=== PATIENT | male | born 1960 | race Two or more races ===

== ENCOUNTER 2017-06-19 14:44 | Emergency (ER) | payer SELFPAY ==
--- NOTE | 2017-06-19 14:58 | EDM.PDOC ---
ED HPI GENERAL MEDICAL PROBLEM - General Chief Complaint: Cardiovascular Problem Stated Complaint: [id number] ELEVATED BLOOD PRESSURE Time Seen by Provider: 06/19/17 14:57 Source of Information: Reports: Patient, RN, RN Notes Reviewed History Limitations: Reports: No Limitations - History of Present Illness INITIAL COMMENTS - FREE TEXT/NARRATIVE: Pt began checking his BP about a week ago and became concerned that his BP is always high. Initially he was finding BPs of 130s/90s, then 140-150/90-100, and for the last 2 days 160's/90-108. He denies chest pain, SOB, edema, palpitations , cough, orthopnea, headaches, or visual changes. Denies Hx of HTN. Denies any recent changes in medications, diet, supplements, etc. He reports some tingling and/or numbness to the left hand distal digits 1-3 for a week or two, but isn't sure if that is related to his BP. Onset: Unknown/Unsure Location: Reports: Generalized Improves with: Reports: None Worsens with: Reports: None Associated Symptoms: Reports: No Other Symptoms - Related Data Allergies Allergy/AdvReac Type Severity Reaction Status Date / Time No Known Allergies Allergy Verified 06/19/17 14:49 Home Meds: Home Meds metFORMIN [Glucophage XR] 500 mg PO BID 06/19/17 [History] Past Medical History Endocrine/Metabolic History: Reports: Diabetes, Type II, Obesity/BMI 30+ Social & Family History - Living Situation & Occupation Living situation: Reports: Occupation: Employed ED ROS GENERAL - Review of Systems Review Of Systems: ROS reveals no pertinent complaints other than HPI. ED EXAM, GENERAL - Physical Exam Exam: See Below Exam Limited By: No Limitations General Appearance: Alert, WD/WN, No Apparent Distress, Obese Ears: Hearing Grossly Normal Nose: Normal Inspection Throat/Mouth: Normal Inspection, Normal Voice, No Airway Compromise Head: Atraumatic, Normocephalic Neck: Normal Inspection, Full Range of Motion Respiratory/Chest: No Respiratory Distress, Lungs Clear, Normal Breath Sounds, No Accessory Muscle Use, Chest Non-Tender Cardiovascular: Normal Peripheral Pulses, Regular Rate, Rhythm, No Edema, No Gallop, No JVD, No Murmur, No Rub GI/Abdominal: Normal Bowel Sounds, Soft, Non-Tender (Male) Exam: Deferred Rectal (Males) Exam: Deferred Extremities: Normal Inspection, Normal Range of Motion, Non-Tender, Normal Capillary Refill, No Pedal Edema Neurological: Alert, Oriented, CN II-XII Intact, Normal Cognition, Normal Gait, No Motor/Sensory Deficits Psychiatric: Normal Affect, Normal Mood Skin Exam: Warm, Dry, Intact, Normal Color, No Rash EKG INTERPRETATION EKG Date: 06/19/17 Time: 15:18 Rhythm: Other (SR) Rate (Beats/Min): 83 [place]: LAD-Left Rexford Deviation (borderline) P-Wave: Present QRS: Normal ST-T: Normal QT: Normal Comparison: NA - No Prior EKG Course - Vital Signs Last Recorded V/S: Last Vital Signs Temp 37.1 C 06/19/17 14:51 Pulse 93 06/19/17 14:51 Resp 18 06/19/17 14:51 BP 164/108 H 06/19/17 14:51 Pulse Ox 96 06/19/17 14:51 - Orders/Labs/Meds Orders: Active Orders 24 hr Category Date Time Status EKG 12 Lead [EKG Documentation Completion] [RC] STAT Care 06/19/17 15:06 Active Orthostatic Vital Signs [RC] ASDIRECTED Care 06/19/17 15:04 Active Chest 2V [CR] Stat Exams 06/19/17 15:08 Taken Labs: Laboratory Tests 06/19/17 06/19/17 Range/Units 15:15 15:15 WBC 10.2 H (5.0-10.0) 10^3/uL RBC 6.10 (4.6-6.2) 10^6/uL Hgb 17.7 (14.0-18.0) g/dL Hct 52.4 (40.0-54.0) % MCV 85.9 (80-100) fL MCH 29.0 (27.0-34.0) pg MCHC 33.8 (33.0-35.0) g/dL Plt Count 309 (150-450) 10^3/uL Neut % (Auto) 58.4 (42.2-75.2) % Lymph % (Auto) 24.8 (20.5-50.1) % [place] % (Auto) 12.5 H (2-8) % Eos % (Auto) 3.4 H (1.0-3.0) % Baso % (Auto) 0.9 (0.0-1.0) % Sodium 134 L (135-145) mmol/L Potassium 4.6 (3.6-5.0) mmol/L Chloride 99 L (101-111) mmol/L Carbon Dioxide 28.0 (21.0-31.0) mmol/L Anion Gap 11.6 BUN 17 (7-18) mg/dL Creatinine 1.0 (0.6-1.3) mg/dL Est Cr Clr Drug Dosing 102.47 mL/min Estimated GFR (MDRD) > 60 BUN/Creatinine Ratio 17.00 Glucose 97 (74-105) mg/dL Calcium 9.2 (8.4-10.2) mg/dl Total Bilirubin 0.7 (0.2-1.0) mg/dL AST 27 (10-42) IU/L ALT 39 (10-60) IU/L Alkaline Phosphatase 37 L (42-121) IU/L Total Protein 8.1 (6.7-8.2) g/dl Albumin 3.8 (3.2-5.5) g/dl Globulin 4.3 Albumin/Globulin Ratio 0.88 - Radiology Interpretation Free Text/Narrative:: CXR: no acute process, see Rad. report. Departure - Departure Time of Disposition: 15:49 Disposition: Home, Self-Care 01 Condition: Good Clinical Impression: Hypertension Qualifiers: Hypertension type: essential hypertension Qualified Code(s): I10 - Essential ( primary) hypertension Instructions: Hypertension Forms: ED Department Discharge Additional Instructions: Rx: Lisinopril 10mg Low to moderate salt consumption. Abstain from alcohol. Monitor your blood pressure at home at random times once or twice a day for at least 7 days. Record the time, preceding activity level, blood pressure, and heart rate. Take the blood pressure log to show your primary doctor in one week. - My Orders Last 24 Hours: My Active Orders 06/19/17 15:04 Orthostatic Vital Signs [RC] ASDIRECTED 06/19/17 15:06 EKG 12 Lead [EKG Documentation Completion] [RC] STAT 06/19/17 15:08 Chest 2V [CR] Stat - Assessment/Plan Last 24 Hours: My Active Orders 06/19/17 15:04 Orthostatic Vital Signs [RC] ASDIRECTED 06/19/17 15:06 EKG 12 Lead [EKG Documentation Completion] [RC] STAT 06/19/17 15:08 Chest 2V [CR] Stat
[2017-06-19 15:41] LABS: CHLORIDE,CL 99 mmol/L (101-111); SODIUM,NA 134 mmol/L (135-145)
--- NOTE | 2017-06-19 15:58 | CR ---
Clinical history: 56-year-old male hypertension. Interpretation: Prominent aortic arch but normal cardiac silhouette without alveolar edema or depende nt pleural effusion. Coarse accentuation of the central lung markings, mild peribronchial "cuffing" and generalized mild a ir trapping. Smoker? No lung mass, hilar lymphadenopathy or focal lobar pneumonia. No atelectasis/collapse. No pneumothorax. CONCLUSION: Bronchial inflammatory changes. No lobar pneumonia. No heart failure.
--- NOTE | 2017-06-20 12:23 | EKG ---
06/19/2017 - CATHRYN GELLER - TIME: 1518 hours. As per my reading, sinus rhythm at 83. MODL /[id number] MTDD
== END 2017-06-19 16:03 | disposition home or self-care (01) ==
LOC: DL.ED 14:44
DX: I10 Essential (primary) hypertension (principal); E11.9 Type 2 diabetes mellitus without complications; E66.9 Obesity, unspecified
CPT/HCPCS: 36415; 71046; 80053; 85025; 93005; 93010; 99283; 99284